=== PATIENT | female | born 1970 | race African-American/Black ===

== ENCOUNTER 2016-12-31 00:21 | Emergency (ER) | payer OTHER ==
[~2016-12-31] VITALS: Ht 165.1 cm; Wt 79.8 kg
[2016-12-31 00:46] VITALS: BP 135/78
[2016-12-31] MEDS ORDERED: LIDOCAINE 1% HCL (LOCAL ANESTH.) INJ 20ML MDV IN ONE (04:45)
[2016-12-31] MEDS ORDERED: TETANUS-DIPTH-ACEL PERTUSSIS 0.5ML SYRG IM ONE ×2 (04:54→05:00)
== END 2016-12-31 05:16 | disposition home or self-care (01) ==
LOC: ER 00:23
DX: S61.217A Laceration without foreign body of left little finger without damage to nail, initial encounter (principal); Z88.1 Allergy status to other antibiotic agents; W45.8XXA Other foreign body or object entering through skin, initial encounter; Y93.89 Activity, other specified; Y92.89 Other specified places as the place of occurrence of the external cause; Y99.8 Other external cause status
CPT/HCPCS: 12001; 82962; 90471; 90715